=== PATIENT | male | born 2000 | race African-American/Black ===

== ENCOUNTER 2025-02-06 13:29 | Emergency (ER) | payer BC, SELFPAY ==
[2025-02-06 13:46] VITALS: BP 135/85; PULSE 70; RESP 16; TEMP 37.2; O2SAT 100
--- NOTE | 2025-02-06 13:48 | ED_ITS ---
HPI - Neck Pain/Injury General Chief Complaint: Neck Pain/Injury Stated Complaint: NECK PAIN Time Seen by Provider: 02/06/25 13:40 Source: patient Mode of arrival: ambulatory Limitations: no limitations History of Present Illness HPI Narrative: 24 y/o male presented for c/o right sided neck pain. onset yesterday. Denies injury. Denies lifting, pushing or pulling movements. Denies radiating pain, numbness, tingling or weakness of the arms. Has not taken anything for pain. Related Data Allergies Allergy/AdvReac Type Severity Reaction Status Date / Time Penicillins Allergy Mild rash Verified 02/06/25 13:44 Review of Systems Review of Systems: CONSTITUTIONAL: Denies body aches, fever, chills, or sweats. EYES: Denies visual changes, redness, or discharge. CARDIOVASCULAR: Denies chest pain, palpitations, or edema. RESPIRATORY: Denies cough or dyspnea. SKIN: Denies rash, itching, or wounds. MUSCULOSKELETAL:reports neck pain Denies back pain, joint pain, or myalgia. NEUROLOGIC: Denies headache, numbness, tingling, or weakness. PSYCH: Denies depression or anxiety. All systems reviewed & are unremarkable except as noted in HPI and below PMFSH Comments At time of signature, I have reviewed and agree with nursing past medical, surgical, social and family history unless otherwise noted. Please see nursing chart for further information. There is no relevant family history pertinent to the presenting complaint Exam Narrative: GENERAL: Well-appearing HEAD: Normocephalic, atraumatic. EYES: EOMI. No redness or drainage. Conjunctivae normal. ENT: Mucous membranes pink and moist. NECK: Normal AROM, endorses right sided neck pain with ear to shoulder movement. No vpt. CHEST: No respiratory distress. Clear to auscultation. HEART: Regular rate and rhythm. Normal peripheral pulses. EXTREMITIES: Normal range of motion to BUEs. No edema. SKIN: Warm, dry, no rash. Capillary refill normal. Normal skin turgor. NEURO: No focal deficits. Alert and oriented x3. Gait steady. PSYCH: Normal affect. Course Course Emergency Course: Patient is aware of diagnosis, understands and agrees to treatment plan. Anticipatory guidance given. Patient agrees to follow-up as directed and is aware of reasons to seek care at the emergency department. Portions of this record may have been created with voice recognition software Level of Care: Express Care Visit Vital Signs Vital signs: Vital Signs Temperature 98.9 F 02/06/25 13:46 Pulse Rate 70 02/06/25 13:46 Respiratory Rate 16 02/06/25 13:46 Blood Pressure 135/85 02/06/25 13:46 Pulse Oximetry 100 02/06/25 13:46 Temperature 98.9 F 02/06/25 13:46 Pulse Rate 70 02/06/25 13:46 Respiratory Rate 16 02/06/25 13:46 Blood Pressure 135/85 02/06/25 13:46 Pulse Oximetry 100 02/06/25 13:46 MDM - Neck Pain/Injury MDM Narrative Medical decision making narrative: Discussed physical exam findings c/w cervical strain. Deferred imaging at this time. Advised supportive measures and signs/symptoms to go to the ER. Pt is appropriate for outpt treatment and f/u. Differential Diagnosis Differential diagnosis: Likely disc disorder of cervical region, whiplash injury to neck, closed subluxation of cervical spine, cervical radiculopathy, torticollis, cervical spondylosis and strain of neck muscle Discharge Plan Discharge Clinical Impression: Acute neck pain Patient Disposition: Home Condition: Stable Instructions: Antibiotic Form, Cervical Strain (ED) Additional Instructions: Rest. Avoid pushing, pulling, lifting or anything that worsens the symptoms Tylenol 1000mg every 8 hours as needed You can alternate with ibuprofen 800mg as prescribed Cyclobenzaprine (Flexeril) is a muscle relaxer. Take it as directed. It can cause drowsiness so do not drive or operate machinery until you know how it makes you feel. Alternate ice/heat to the site. Lidocaine or salon pas pain patch or use pain cream like icy/hot or biofreeze. ( do not apply heating pad or ice over any cream/patches) Follow up with your primary care provider as needed in 1 week Go to the ER for worsening symptoms or concerns Patient Language: Wolof Prescriptions: New cyclobenzaprine 10 mg tablet 10 mg PO TID PRN (Reason: muscle spasm) Qty: 10 0RF ibuprofen 800 mg tablet 800 mg PO TID PRN (Reason: pain) Qty: 15 0RF Follow-up/Referrals: PHYSICIAN,[employer] SWEEPER OPERATOR [Primary Care Provider] - Stand Alone Forms: Work/School Release IP Time of Disposition: 13:57
== END 2025-02-06 14:01 | disposition home or self-care (01) ==
PROVIDERS: Emergency Provider Nurse Practitioner Family
DX: M54.2 Cervicalgia (principal)
CPT/HCPCS: 99203; G0463

== ENCOUNTER 2025-05-13 12:53 | Emergency (ER) | payer BC, SELFPAY ==
--- NOTE | ~2025-05-13 | CT_ITS ---
EXAMINATION: CT thoracic spine wo con, CT lumbar spine wo con DATE: 05/13/2025 15:03 INDICATION: midline pain x3d, someone fell on pt . TECHNIQUE: Computed tomography (CT) of the thoracic and lumbar spine was performed without intravenou s contrast. Automated exposure control and iterative reconstruction technique were employed. The dose -length product was 675.17 mGy-cm. COMPARISON: None FINDINGS: THORACIC SPINE: Vertebral body alignment intact. Vertebral body heights preserved. Mild disc space narrowing at T12-L 1 with anterior and lateral marginal osteophytosis. No traumatic malalignment or fracture. Visualized lung parenchyma is clear. LUMBAR SPINE: 5 nonrib-bearing lumbar-type vertebral bodies. Pedicles intact. Normal vertebral body alignment. Vert ebral body heights preserved. Mild disc space narrowing at L2-3 and L3-4. Moderate disc space narrowi ng L5-S1. 2 mm central protrusion superimposed on a diffuse disc bulge at L4-5. Mild bilateral neural foraminal narrowing at L4-5 and L5-S1. No central canal narrowing. Mild facet sclerosis and osteophy tosis at all lumbar levels. IMPRESSION: No acute fracture or traumatic malalignment detected in the thoracic or lumbar spine. Mild degenerative disc disease at T12-L1. Multilevel mild-moderate lumbar degenerative disc disease. Reviewed, dictated and finalized at location K. IMPRESSION: No acute fracture or traumatic malalignment detected in the thoracic or lumbar spine. Mild degenerative disc disease at T12-L1. Multilevel mild-moderate lumbar degenerative disc disease.
[2025-05-13 13:00] VITALS: BP 125/92; PULSE 73; RESP 20; TEMP 36.6; O2SAT 99
[2025-05-13] MEDS: HYDROcodone/acetaminophen (*CRX) 5-325 MG TABLET 1 TAB PO (13:30)
--- NOTE | 2025-05-13 14:33 | ED.BACK ---
HPI - Back Pain/Injury General Chief Complaint: Back Pain/Injury Stated Complaint: back pain Time Seen by Provider: 05/13/25 13:57 Source: patient Mode of arrival: ambulatory Limitations: no limitations History of Present Illness HPI Narrative: Patient is a 24-year-old male who presents the ED with report of mid and lower back pain. Patient reports having pain for the past 3 days. States he was playing basketball and somebody fell on top of his back while he was on the ground. Complains of pain to his mid to lower back. Worse with movement. Has been taking Tylenol without improvement. Denies abdominal pain, radiation into legs, saddle anesthesia, bowel or bladder incontinence. Related Data Allergies Allergy/AdvReac Type Severity Reaction Status Date / Time Penicillins Allergy Mild rash Verified 05/13/25 12:54 Review of Systems Review of Systems: All systems reviewed & are unremarkable except as noted in HPI. All systems reviewed & are unremarkable except as noted in HPI and below Exam Narrative: GENERAL: Well appearing, well-nourished, non-toxic, in no acute distress. HEAD: Normocephalic, atraumatic. RESPIRATORY: Airway patent, respirations nonlabored. CARDIOVASCULAR: Regular rate and rhythm without murmurs, rubs, or gallops. ABDOMINAL: Soft, no significant tenderness, nondistended. Normoactive BS. MUSCULOSKELETAL: Moves all extremities. No gross deformities. Mild tenderness to palpation throughout lower thoracic and to upper lumbar midline spine without palpable bony deformities or step-offs. There is a small area of bruising along thoracic midline spine, near the level of the inferior scapulas. Sensation intact. SKIN: Warm, dry, normal color. NEURO: A&O X3. Speech clear. Cranial nerves II-XII grossly intact. Steady gait. No ataxic movements. PSYCHIATRIC: Appropriate mood and affect. Normal interaction. Course Vital Signs Vital signs: Vital Signs Temperature 97.9 F 05/13/25 13:00 Pulse Rate 73 05/13/25 13:00 Respiratory Rate 20 05/13/25 13:00 Blood Pressure 125/92 H 05/13/25 13:00 Pulse Oximetry 99 05/13/25 13:00 Oxygen Delivery Room Air 05/13/25 13:00 Temperature 97.9 F 05/13/25 13:00 Pulse Rate 73 05/13/25 13:00 Respiratory Rate 20 05/13/25 13:00 Blood Pressure 125/92 H 05/13/25 13:00 Pulse Oximetry 99 05/13/25 13:00 Oxygen Delivery Room Air 05/13/25 13:00 MDM - Back Pain/Injury MDM Narrative Medical decision making narrative: Patient?s pain is positional and localized to paraspinal muscles without signs of cord compression or cauda equina. Normal neurologic exams. No red flag symptoms. No fever noted and no significant risk factors for osteomyelitis or spinal epidural abscess. No symptoms or signs to suggest pain is referred from abdominal or source. CT scan of lumbar and thoracic spine was obtained and without acute spinal fracture malalignment. Does show mild degenerative changes. Patient given [place], Flexeril, Toradol in the ED. On re-evaluation, he is feeling improved. Patient ambulates with a steady gait and is felt to be a reasonable candidate for continued outpatient management. Will discharge on muscle relaxers and lidocaine patches. Advised rest, ice, limiting strenuous activity. Given return precautions. He is in agreement with plan. Discharged in stable Medical Records Attestation: I reviewed the patient's medical records. Imaging Data Attestation: I personally reviewed and interpreted this imaging study as follows: Radiologist's impression: ITS Impressions Lumbar Spine CT 05/13/25 15:55 IMPRESSION: No acute fracture or traumatic malalignment detected in the thoracic or lumbar spine. Mild degenerative disc disease at T12-L1. Multilevel mild-moderate lumbar degenerative disc disease. Thoracic Spine CT 05/13/25 15:55 IMPRESSION: No acute fracture or traumatic malalignment detected in the thoracic or lumbar spine. Mild degenerative disc disease at T12-L1. Multilevel mild-moderate lumbar degenerative disc disease. Discharge Plan Discharge Clinical Impression: Strain of thoracic back region Strain of lumbar region Qualifiers: Encounter type: initial encounter Qualified Code(s): S39.012A - Strain of muscle, fascia and tendon of lower back, initial encounter Patient Disposition: Home Condition: Stable Instructions: Antibiotic Form, Acute Low Back Pain (ED), Lower Back Exercises (ED) Additional Instructions: Continue Tylenol and Ibuprofen as needed for pain. You may use ice/heat, lidocaine patches to area of pain. Take muscle relaxers as needed and prescribed. Recommend taking these at night as they may cause sedation. Do not drive, operate heavy machinery, drink alcohol while on muscle relaxers as this may cause further sedation. Follow-up with your primary care doctor for further evaluation. Return to the ED if you experience worsening or severe pain, recurrent injury, numbness in groin or legs, going to the bathroom without meaning to, unable to keep down food or drink, or any other symptoms of concern. Patient Language: Occitan Prescriptions: New lidocaine 5 % adhesive patch,medicated 1 patch topical DAILY Qty: 15 0RF Rx Instructions: leave on most painful area for up to 12 hrs cyclobenzaprine 5 mg tablet 5 mg PO TID PRN (Reason: muscle spasm) Qty: 15 0RF No Action cyclobenzaprine 10 mg tablet 10 mg PO TID PRN (Reason: muscle spasm) Qty: 10 0RF ibuprofen 800 mg tablet 800 mg PO TID PRN (Reason: pain) Qty: 15 0RF Follow-up/Referrals: Johann Alvarez MD [Physician] - (PRIMARY CARE) PHYSICIAN,[employer]AT [Primary Care Provider] - Time of Disposition: 16:20
[2025-05-13] MEDS: CYCLOBENZAPRINE HCL 5 MG TABLET PO (14:39)
[2025-05-13] MEDS: KETOROLAC (*BKC) 60 MG/2 ML VIAL IM (14:40)
== END 2025-05-13 16:27 | disposition home or self-care (01) ==
PROVIDERS: Emergency Provider Physician Assistant
DX: S39.012A Strain of muscle, fascia and tendon of lower back, initial encounter (principal); S29.012A Strain of muscle and tendon of back wall of thorax, initial encounter; M51.35 Other intervertebral disc degeneration, thoracolumbar region; M51.369 Other intervertebral disc degeneration, lumbar region without mention of lumbar back pain or lower extremity pain; W51.XXXA Accidental striking against or bumped into by another person, initial encounter; Y93.67 Activity, basketball
CPT/HCPCS: 72128; 72131; 96372; 99284; A9270; J1885